=== PATIENT | female | born 2000 | race Hispanic/Latino ===

== ENCOUNTER 2023-10-06 08:53 | Emergency (ER) | payer OTHER ==
[2023-10-06 09:34] LABS: Bilirubin Neg (Negative); Blood, Urine 250 (Negative); Clarity Slightly Cloudy (Clear); Glucose, Urine (Dipstick) Normal (Negative); Ketone, Urine Negative (Negative); Leukocyte 500 (Negative); Nitrite Negative (Negative); Protein, Urine (Dipstick) 15 mg/dl (Neg-Trace); Urobilinogen Normal mg/dL (Less than 2)
[2023-10-06 10:00] LABS: #Basophils 0.1 10x3/uL (0.0-0.2); #Eosinphils 0.2 10x3/uL (0.0-0.5); #Monocytes 0.8 10x3/uL (0.0-1.1); #Neutrophils 8.5 10x3/uL (1.5-8.4); %Basophils 0.4 % (0.0-2.0); %Eosinophils 1.4 % (0.0-6.0); %Monocytes 6.8 % (0.0-10.0); %Neutrophils 68.7 % (40.0-75.0); Hematocrit 41.4 % (34.9-44.5); Hemoglobin 13.9 g/dL (12.0-15.5); Mean Corpuscular HGB CONC 33.6 g/dL (32.0-36.0); Mean Corpuscular Volume 83.3 fl (81.6-98.3); Mean Platelet Volume 10.2 fl (7.4-10.4); Platelet Count 288 10x3/uL (150-450); RBC Distribution Width 12.5 % (11.5-14.5); Red Blood Cell (RBC) Count 4.97 10x6/uL (3.90-5.03); White Blood Cell (WBC) Count 12.4 10x3/uL (3.5-10.5)
[2023-10-06 10:13] LABS: Anion Gap 13 mmol/L (10-20); BUN (Urea Nitrogen) 9 mg/dL (7.0-18.7); Calc. Creatinine Clearance 0 mL/min (70-130); Calcium 9.2 mg/dL (7.8-10.44); Carbon Dioxide 21 mmol/L (22-29); Chloride 103 mmol/L (98-107); Estimated GFR 130; Glucose 110 mg/dL (70-105); Potassium 3.9 mmol/L (3.5-5.1); Sodium 133 mmol/L (136-145)
[2023-10-06 10:18] LABS: Bacteria/HPF 2+ HPF (None Seen); CAUTI Indications for Culture Pregnancy; RBC/HPF Greater than 50 HPF (0-3)
[2023-10-06 10:19] LABS: Mucous/LPF 1+ LPF (<2+); WBC/HPF 21-50 HPF (0-3)
[2023-10-06 10:21] LABS: Urine Culture Reflex Yes Yes
== END 2023-10-06 11:10 | disposition home or self-care (01) ==
LOC: CSHERS 08:53
DX: O23.41 Unspecified infection of urinary tract in pregnancy, first trimester (principal); N39.0 Urinary tract infection, site not specified; R03.0 Elevated blood-pressure reading, without diagnosis of hypertension; Z3A.12 12 weeks gestation of pregnancy
CPT/HCPCS: 36415; 76856; 80048; 81001; 84702; 85025; 86900; 86901; 87077; 87086; 87186

== ENCOUNTER 2024-03-24 05:35 | Inpatient (IN) | payer BC ==
[2024-03-21 17:42] LABS: Hematocrit 36.2 % (34.9-44.5); Hemoglobin 12.5 g/dL (12.0-15.5); Mean Corpuscular HGB CONC 34.5 g/dL (32.0-36.0); Mean Corpuscular Hemoglobin 27.7 pg (27.0-33.0); Mean Corpuscular Volume 80.3 fl (81.6-98.3); Mean Platelet Volume 10.8 fl (7.4-10.4); Platelet Count 313 10x3/uL (150-450); RBC Distribution Width 13.1 % (11.5-14.5); Red Blood Cell (RBC) Count 4.51 10x6/uL (3.90-5.03); White Blood Cell (WBC) Count 10.4 10x3/uL (3.5-10.5)
[2024-03-21 18:12] LABS: HIV (1/2) Antibody/Antigen Non-Reactive (NonReactive); HIV 1/2 INDEX 0.11 S/CO (<1.00); Hep B Surf Ag Non-Reactive S/CO (NonReactive)
[2024-03-21 18:13] LABS: Syphilis Antibody Nonreactive (Nonreactive); Syphilis Antibody Index 0.04 S/CO (<1.00 Non-Reactive)
[2024-03-24] MEDS ORDERED: Acetaminophen 500 MG TAB PO PRN (06:13)
[2024-03-24] MEDS ORDERED: Ondansetron PF 4 MG/2 ML Vial IVP PRN ×3 (06:13→07:02)
[2024-03-24] MEDS ORDERED: fentaNYL 50 mcg/mL 1 mL Vial SLOW IVP PRN ×2 (06:13→07:02)
[2024-03-24] MEDS ORDERED: Promethazine HCl 25 MG/ML VIAL IM PRN ×3 (06:13→10:16)
[2024-03-24] MEDS ORDERED: Diphenoxylate HCl/Atropine Tablet PO PRN (06:13)
[2024-03-24] MEDS ORDERED: Methylergonovine 0.2 MG/ML VIAL IM PRN (06:13)
[2024-03-24] MEDS ORDERED: hydrALAZINE 20 MG/ML VIAL SLOW IVP PRN ×2 (06:13→10:16)
[2024-03-24 06:15] VITALS: BMI 53.7
[2024-03-24] MEDS ORDERED: Naloxone HCl 0.4 mg/ml Vial IVP PRN ×2 (07:02)
[2024-03-24] MEDS ORDERED: Meperidine HCl/PF 25 MG (1 mL) VIAL SLOW IVP PRN (07:02)
[2024-03-24] MEDS ORDERED: Naloxone HCl 0.4 mg/ml Vial IV PRN (07:02)
[2024-03-24] MEDS ORDERED: HYDROmorphone 0.5 MG/0.5 ML SYRINGE SLOW IVP PRN (07:02)
[2024-03-24] MEDS ORDERED: Moisturizing Cream (Eucerin) 113 GM JAR TOP PRN (07:02)
[2024-03-24 07:05] LABS: ALT (SGPT) 15 U/L (8-55); AST (SGOT) 13 U/L (5-34); Albumin 2.6 g/dL (3.5-5.0); Alkaline Phosphatase 129 U/L (40-110); Anion Gap 14 mmol/L (10-20); BUN (Urea Nitrogen) 13 mg/dL (7.0-18.7); Bilirubin, Total 0.3 mg/dL (0.2-1.2); Calc. Creatinine Clearance 318 mL/min (70-130); Calcium 8.9 mg/dL (7.8-10.44); Carbon Dioxide 18 mmol/L (22-29); Chloride 108 mmol/L (98-107); Estimated GFR 129; Globulin 3.9 g/dL (2.4-3.5); Glucose 106 mg/dL (70-105); Potassium 3.8 mmol/L (3.5-5.1); Protein, Total 6.5 g/dL (6.0-8.3); Sodium 136 mmol/L (136-145)
[2024-03-24] MEDS: Bicitra 30 ML UDCUP PO PRN (07:10)
[2024-03-24] MEDS: CEFAZOLIN 2 GM in Sodium Chloride 0.9% 100 ML IVPB SCH (07:10)
[2024-03-24] MEDS: Lactated Ringer's 1,000 ML IV SCH (07:11)
[2024-03-24] MEDS: Famotidine/PF 20 mg/2ml Vial SLOW IVP PRN (07:11)
[2024-03-24] MEDS ORDERED: Ketorolac Tromethamine 30 MG (1 mL) VIAL IVP SCH (07:15)
[2024-03-24] MEDS ORDERED: Communication Order-Pharmacy FS SCH (07:15)
[2024-03-24] MEDS: Carboprost 250 MCG/ML AMP IM PRN (08:16)
[2024-03-24] MEDS: Misoprostol 200 MCG TAB PR PRN (08:16)
[2024-03-24] MEDS: Oxytocin 30 units/NS 500 ML 500 ML IV SCH (08:40)
[2024-03-24] MEDS ORDERED: diphenhydrAMINE 25 MG CAP PO PRN (10:16)
[2024-03-24] MEDS ORDERED: Bisacodyl 10 MG SUPP PR PRN (10:16)
[2024-03-24] MEDS ORDERED: Acetaminophen 325 MG TAB PO PRN (10:16)
[2024-03-24] MEDS ORDERED: Zolpidem Tartrate 5 MG TAB PO PRN (10:16)
[2024-03-24] MEDS ORDERED: Lanolin Ointment 7 GM TUBE TOP PRN (10:16)
[2024-03-24] MEDS: Ketorolac Tromethamine 30 MG (1 mL) VIAL IVP PRN (10:46)
[2024-03-24] MEDS: diphenhydrAMINE 50 MG/ML VIAL IVP PRN (12:09)
[2024-03-24] MEDS: Ondansetron PF 4 MG/2 ML Vial IVP PRN (12:09)
[2024-03-24] MEDS: Erythromycin Base 0.5% Oint 1 GM TUBE ONE (12:47)
[2024-03-24] MEDS: Morphine PF 10 MG/10 ML VIAL ONE (12:58)
[2024-03-24] MEDS: Phytonadione Neonatal 1 MG/0.5 ML AMP ONE (12:58)
[2024-03-24] MEDS: fentaNYL 50 mcg/mL 1 mL Vial ONE (12:58)
[2024-03-24] MEDS: Dexamethasone 4 mg/ml Vial ONE (12:59)
[2024-03-24] MEDS: Boostrix 0.5 ML (Tdap) VIAL (>/=7 yrs of age) IM ONE (12:59)
[2024-03-24] MEDS: Ondansetron PF 4 MG/2 ML Vial ONE (12:59)
[2024-03-24] MEDS: Misoprostol 200 MCG TAB ONE (12:59)
[2024-03-24] MEDS: CEFAZOLIN 1 GM VIAL ONE (12:59)
[2024-03-24] MEDS: Oxytocin 10 UNITS/ML VIAL ONE ×2 (12:59)
[2024-03-24] MEDS: Diphenoxylate HCl/Atropine Tablet PO SCH (12:59)
[2024-03-24] MEDS: Phenylephrine 10 MG/ML VIAL ONE (12:59)
[2024-03-24] MEDS: Docusate 100 MG CAP PO SCH ×2 (13:00→21:05)
[2024-03-24] MEDS: glyBURIDE 2.5 MG TAB PO SCH ×2 (13:00→17:18)
[2024-03-24] MEDS: Prenatal Vitamin 1 TAB PO SCH (13:00)
[2024-03-24] MEDS: Ferrous Sulfate 325 MG TAB PO SCH ×2 (13:00→21:06)
[2024-03-24] MEDS ORDERED: HYDROcodone/Acetaminophen 5/325 mg Tablet PO PRN (19:15)
[2024-03-24] MEDS: HYDROcodone/Acetaminophen 5/325 mg Tablet PO PRN (21:41)
[2024-03-24] MEDS: Simethicone Chewable 80 MG TAB PO PRN (21:41)
[2024-03-25] MEDS: Prenatal Vitamin 1 TAB PO SCH (08:16)
[2024-03-25 09:10] LABS: Hematocrit 28.5 % (34.9-44.5); Hemoglobin 9.6 g/dL (12.0-15.5); Mean Corpuscular HGB CONC 33.7 g/dL (32.0-36.0); Mean Corpuscular Hemoglobin 27.2 pg (27.0-33.0); Mean Corpuscular Volume 80.7 fl (81.6-98.3); Mean Platelet Volume 10.8 fl (7.4-10.4); Platelet Count 249 10x3/uL (150-450); RBC Distribution Width 13.1 % (11.5-14.5); Red Blood Cell (RBC) Count 3.53 10x6/uL (3.90-5.03); White Blood Cell (WBC) Count 9.2 10x3/uL (3.5-10.5)
[2024-03-25] MEDS: Ibuprofen 800 MG TAB PO SCH (13:50)
[2024-03-26 01:03] VITALS: TEMP 98.4
[2024-03-26 07:46] VITALS: BP 129/73
== END 2024-03-26 13:45 | disposition home or self-care (01) | DRG 788 ==
LOC: CSHLD 05:35 → CSHPED 11:00
PROVIDERS: ADMIT Student in an Organized Health Care Education/Training Program; ATTEND Student in an Organized Health Care Education/Training Program
PROC: 10D00Z1 Extraction of Products of Conception, Low, Open Approach (ICD-10-PCS; principal; 2024-03-24)
DX: O34.211 Maternal care for low transverse scar from previous cesarean delivery (principal); Z37.0 Single live birth; Z3A.37 37 weeks gestation of pregnancy; O13.4 Gestational [pregnancy-induced] hypertension without significant proteinuria, complicating childbirth; Z79.899 Other long term (current) drug therapy; O24.92 Unspecified diabetes mellitus in childbirth; E66.9 Obesity, unspecified; O99.214 Obesity complicating childbirth
CPT/HCPCS: 36415; 36416; 51702; 80053; 85027; 86780; 86850; 86900; 86901; 87340; 87389; J0690; J1100; J1200; J1885; J2274; J2371; J2405; J2590; J3010; J3490; J7120; S0028